=== PATIENT | female | born 1980 | race Caucasian/White ===

== ENCOUNTER 2020-02-20 08:27 | Emergency (ER) | payer SELFPAY ==
[2020-02-20] MEDS ORDERED: Lidocaine 1% PF 5 ML VIAL ONE (08:45)
[2020-02-20] MEDS ORDERED: Bacitracin 1 PK ONE (08:57)
== END 2020-02-20 09:15 | disposition home or self-care (01) ==
LOC: BURERS 08:27
DX: S61.211A Laceration without foreign body of left index finger without damage to nail, initial encounter (principal); E03.9 Hypothyroidism, unspecified; F41.9 Anxiety disorder, unspecified; F32.9 Major depressive disorder, single episode, unspecified; Z79.899 Other long term (current) drug therapy; W01.118A Fall on same level from slipping, tripping and stumbling with subsequent striking against other sharp object, initial encounter; Y92.009 Unspecified place in unspecified non-institutional (private) residence as the place of occurrence of the external cause
CPT/HCPCS: 12001; J2001

== ENCOUNTER 2020-10-23 18:45 | Emergency (ER) | payer SELFPAY ==
[2020-10-24 13:08] LABS: SARS-CoV-2 PCR by NAA Not Detected (NotDetected)
== END 2020-10-23 19:17 | disposition home or self-care (01) ==
LOC: BURERS 18:45
DX: B34.9 Viral infection, unspecified (principal); Z20.822 Contact with and (suspected) exposure to COVID-19; Z79.899 Other long term (current) drug therapy; E03.9 Hypothyroidism, unspecified; F17.210 Nicotine dependence, cigarettes, uncomplicated
CPT/HCPCS: 87635; 99283; U0003; U0005